=== PATIENT | female | born 1995 | race Two or more races ===

== ENCOUNTER 2025-05-21 03:22 | Emergency (ER) | payer SELFPAY ==
[2025-05-21 03:25] VITALS: PULSE 98; O2SAT 99
[2025-05-21 03:29] VITALS: BMI 32.1
[2025-05-21 03:39] VITALS: BP 124/83; PULSE 98; RESP 19; TEMP 36.4; O2SAT 98
--- NOTE | 2025-05-21 04:03 | EDNOTE_ITS ---
ED Anxiety RME/HPI General Chief Complaint: Anxiety Stated Complaint: ANXIETY Time Seen by Provider: 05/21/25 04:01 Arrival date/time: 05/21/25 03:22 30F with no significant PMH presents to ED with anxiety/panic attack after patient's BF was arrested at the [facility] by [employer]. They have both been drinking. Patient denies SI/HI. Patient was just wanted to be evaluation and declines meds. Limitations: no limitations Related Data Allergies Allergy/AdvReac Type Severity Reaction Status Date / Time No Known Allergies Allergy Verified 05/21/25 03:23 Review of Systems Review of Systems Systems Reviewed: All systems reviewed, normal except as documented Psychiatric Psychiatric: Reports as per HPI, Reports anxiety and Reports panic attacks Past Medical History Social History SMOKING STATUS: Never smoker ED Exam General Limitations: Present no limitations General appearance: Present alert and anxious Head Head exam: Present atraumatic Neck Neck exam: Present normal inspection, full ROM and trachea midline Chest Chest inspection: Present normal inspection and symmetric chest wall rise Neurological Exam Neurological exam: Present alert and oriented X3 Psychiatric Psychiatric exam: Present normal affect and anxious (crying) Skin Skin exam: Present warm, dry, intact and normal color Course Quality Measures none Vital Signs Vital signs: Vital Signs Temperature 97.6 F 05/21/25 03:39 Pulse Rate 98 05/21/25 03:39 Respiratory Rate 19 05/21/25 03:39 Blood Pressure 124/83 05/21/25 03:39 Pulse Oximetry (%) 98 05/21/25 03:39 Oxygen Delivery Method Room Air 05/21/25 03:39 Anxiety MDM Narrative MDM Narrative: 30F with no significant PMH presents to ED with anxiety/panic attack after patient's BF was arrested at the [facility] by [employer]. They have both been drinking. Patient denies SI/HI. Patient was just wanted to be evaluation and declines meds. Physical exam reveals anxious/crying female. Patient is afebrile and mostly alert. Speech normal. Gait normal. [employer] given. Patient data External records reviewed:: None Clinical information provided by:: patient Social determinants that could affect healthcare access:: none Patient has the following chronic illnesses:: none How is presenting disease/condition affected by chronic disease/condition?: no chronic disease Evaluation data The following diagnostics were reviewed and interpreted by me:: other (specify) (none) Lab and/or radiology exams considered but not ordered:: not ordered Interpretation Summary: n/a Medications / Prescriptions Medications or Prescriptions considered but not ordered:: not ordered Medication administrations:: n/a Consultations Consultation(s) initiated? (list below): No Diagnosis Differential diagnosis anxiety: hyperventilation, panic disorder, acute anxiety and other (stress reaction) Most likely diagnosis given after review of the tests above:: stress reaction Admission Indicated Admission indicated?: not indicated Admission Request Was there a request for admission?: No Disposition Plan Disposition Plan: Discharge Discharge Attestation Discharge Attestation: The patient and all family members were given an opportunity to ask questions and understood the discharge instructions. Discharge instructions specifically effects, indications for sooner follow up or return to the emergency department, and the expected course of current diagnosis. Patient condition: Stable Discharge Plan Plan Patient Disposition: HOME (Self Care) Discharge Disposition comment: Stable Problem List Clinical Impression: Stress reaction Patient/Caregiver Discharge Instructions Education Materials: Your Body's Response to Anxiety Additional Instructions: Please follow-up with PCP within 24-48 hours and return immediately if symptoms worsen. Print Language: Welsh Stand Alone Forms: Patient Portal Info Letter SADA/RUPINDER Supervising Physician SADA/RUPINDER Supervising Physician: Dr. Hummel
--- NOTE | 2025-05-21 04:36 | PC.NURSE ---
CALLED PATIENT IN THE LOBBY AND OUTSIDE FOR DISCHARGE, NO ANSWER RECEIVED. PER SECURITY STAFF PATIENT LEFT WITH FRIEND.
== END 2025-05-21 04:38 | disposition home or self-care (01) ==
LOC: SERX 04:19
PROVIDERS: Emergency Provider Emergency Medicine
DX: F43.89 Other reactions to severe stress (principal)
CPT/HCPCS: 99281